=== PATIENT | male | born 1995 | race Hispanic/Latino ===

== ENCOUNTER 2017-09-11 13:13 | Emergency (ER) | payer SELFPAY ==
[~2017-09-11 13:13] MED LIST: ISOVUE-370 76%-LOCM 1 ML ONE
[2017-09-11 14:29] LABS: #Basophils 0.1 thou/uL (0.0-0.2); #Lymphocytes 1.3 thou/uL (1.20-3.40); #Monocytes 0.3 thou/uL (0.11-0.59); #Neutrophils 2.2 thou/uL (1.40-6.50); %Basophils 1.3 % (0.0-1.0); %Lymphocytes 32.8 % (21.0-51.0); %Monocytes 6.9 % (0.0-10.0); %Neutrophils 57.9 % (42.0-75.0); Hemoglobin 15.2 g/dL (14.0-18.0); Mean Corpuscular HGB CONC 33.6 g/dL (32.0-36.0); Mean Corpuscular Hemoglobin 29.9 pg (27.0-31.0); Mean Corpuscular Volume 89.1 fl (80.0-94.0); Mean Platelet Volume 7.4 fL (7.4-10.4); Platelet Count 274 thou/uL (130-400); RBC Distribution Width 11.9 % (11.5-14.5); White Blood Cell (WBC) Count 3.8 thou/uL (4.8-10.8)
[2017-09-11 14:48] LABS: Anion Gap 8 mmol/L (10-20); BUN (Urea Nitrogen) 19 mg/dL (8.9-20.6); Calc. Creatinine Clearance 0 mL/min (70-130); Calcium 9.5 mg/dL (7.8-10.44); Carbon Dioxide 30 mmol/L (22-29); Chloride 102 mmol/L (98-107); Estimated GFR-MDRD Greater than 90; Glucose 87 mg/dL (70-105); Potassium 4.1 mmol/L (3.5-5.1); Sodium 136 mmol/L (136-145)
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
[2017-09-11] MEDS ORDERED: Ketorolac Tromethamine 30 MG/ML VIAL ONE (15:00)
== END 2017-09-11 15:32 | disposition home or self-care (01) ==
LOC: ERS 13:13
DX: S30.0XXA Contusion of lower back and pelvis, initial encounter (principal); S70.01XA Contusion of right hip, initial encounter; S80.219A Abrasion, unspecified knee, initial encounter; S80.211A Abrasion, right knee, initial encounter; V00-Y99 External causes of morbidity
CPT/HCPCS: 36415; 70450; 71260; 72125; 74177; 80048; 85025; 96374; G0390; J1885